=== PATIENT | male | born 1995 | race Two or more races ===

== ENCOUNTER 2017-06-29 12:16 | Emergency (ER) | payer BC, OTHER ==
[2017-06-29 12:20] VITALS: BMI 29.0
--- NOTE | 2017-06-29 12:26 | PDOC ---
History of Present Illness - General Chief Complaint: Seizure Stated Complaint: SEIZURE Time Seen by Provider: 06/29/17 12:24 History Source: Patient, Parent(s) (mother) Exam Limitations: Other (Mental disability) - History of Present Illness Initial Comments: 06/29/17 12:48 Patient is a 21 yo male with a history of intellectual disability and seizures presenting 2 hours after having a partially witnessed tonic clonic seizure. According to mother the patient was going to the bathroom around 10:30 AM when she heard him drop his glasses and then a "thump". She entered the bathroom to find the patient slumped over against the wall actively seizing. She assisted the patient to his side and the seizure lasted about 2-3 minutes. Afterward the patient was confused and lethargic for about 30 minutes before returning to baseline. The patient denies hitting his head, bitting his tongue or lips, HOOKS, weakness and head or neck pain. Mother also endorses a non-clonic seizure last night around 10:30 PM after which patient was post-ictal for a short period before going to sleep. According to mom, patient was c/o about having a fever last night states he did not feel hot and she did not take his temperature. Denies fever, chills, CP, SOB, Abdominal pain, N/V/D/C. Patient was diagnosed with a seizure disorder in 2006 but was not put on medication at that time. He was essentially seizure free until December when patient had a severe seizure and was started on Keppra 250 mg per day. Patient had another seizure in March and Keppra was increased to 250 mg bid. Patient is seen by Dr. Santizo. Mom called Dr. Santizo to tell her they were going to the emergency department and has a tentative appointment in 3 days. Past History - Past Medical History Allergies/Adverse Reactions: Allergies Allergy/AdvReac Type Severity Reaction Status Date / Time No Known Allergies Allergy Verified 06/29/17 12:21 Home Medications: Ambulatory Orders Levetiracetam [Keppra -] 250 mg PO BID 06/29/17 Psychiatric Problems: Yes (MENTALLY CHALLENGED) Seizures: Yes - Psycho/Social/Smoking Cessation Hx Suicidal Ideation: No Smoking History: Never smoked Information on smoking cessation initiated: No Review of Systems - Review of Systems Able to Perform ROS?: Yes Comments:: 06/29/17 13:16 Denies fever, chills, recent illnesses Denies HOOKS, head pain, neck pain, lightheadedness Denies chest pain, shortness of breath, palpitations Denies abdominal pain, nausea, vomiting, diarrhea, constipation Denies weakness, dizziness, Denies incontinence, dysurea All other systems reviewed and negative Is the patient limited Czech proficient: No *Physical Exam - Vital Signs Last Vital Signs Temp Pulse Resp BP Pulse Ox 97.5 F L 75 18 133/76 99 06/29/17 12:17 06/29/17 12:17 06/29/17 12:17 06/29/17 12:17 06/29/17 12:17 - Physical Exam Comments: 06/29/17 13:21 Patient is awake and alert, facial stigmata, well nourished and generally well appearing, NAD Head NCAT, small ([id number]) abrasion to right nare Eyes PERRLA, EOMI Hearing grossly normal, nares patent, no septal hematoma, MMM, no evidence of bites or oral lesions lungs CTAB, no respiratory distress Heart RRR, no MRG Abdomen soft NTND, [id number] Normal gross inspection of all extremities CNII-XII grossly intact, facial strength/sensation wnl, no focal neurological deficits Patient shy and minimally communicative, appropriate mood, very pleasant and social ED Treatment Course - LABORATORY CBC & Chemistry Diagram: 06/29/17 13:23 06/29/17 13:23 - RADIOLOGY Radiograph Interpretation: 06/29/17 13:39 [id number] RAD/CHEST X-RAY PORTABLE* Chest: Infection workup. An apical lordotic chest reveals clear lungs, prominent mediastinum and sharp angles. The bones and soft tissues are intact. Impression: No acute pathology. No comparison studies. Medical Decision Making - Medical Decision Making 06/29/17 13:30 21 yo male with ID and seizure disorder presenting after witnessed seizure Ddx includes seizure but also includes seizure mimics and underlying conditions that could lower the patients seizure threshold including infection and metabolic derrangement. Plan Standard labs: CBC, CMP CXR, UA Keppra level (for patient's neurology followup) Monitor and reassess Consult with patient's neurologist 06/29/17 13:35 CXR: No acute pathology; clear lungs 06/29/17 14:59 CBC, CMP, UA grossly normal CBC WBC 7.5 K/mm3 (4.0-10.0) 06/29/17 13:23 RBC 5.49 M/mm3 (4.00-5.60) 06/29/17 13:23 Hgb 16.0 GM/dL (11.7-16.9) 06/29/17 13:23 Hct 47.2 % (35.4-49) 06/29/17 13:23 MCV 85.9 fl (80-96) 06/29/17 13:23 MCH 29.1 pg (25.7-33.7) 06/29/17 13:23 MCHC 33.8 g/dl (32.0-35.9) 06/29/17 13:23 RDW 13.8 % (11.9-15.9) 06/29/17 13:23 Plt Count 230 K/MM3 (134-434) 06/29/17 13:23 MPV 8.8 fl (7.5-11.1) 06/29/17 13:23 Neutrophils % 77.3 % (42.8-82.8) 06/29/17 13:23 Lymphocytes % 14.7 % (8-40) 06/29/17 13:23 Monocytes % 6.6 % (3.8-10.2) 06/29/17 13:23 Eosinophils % 0.6 % (0-4.5) 06/29/17 13:23 Basophils % 0.8 % (0-2.0) 06/29/17 13:23 CMP Sodium 140 mmol/L (136-145) 06/29/17 13:23 Potassium 4.5 mmol/L (3.5-5.1) 06/29/17 13:23 Chloride 103 mmol/L (98-107) 06/29/17 13:23 Carbon Dioxide 28 mmol/L (21-32) 06/29/17 13:23 Anion Gap 9 (8-16) 06/29/17 13:23 BUN 18 mg/dL (7-18) 06/29/17 13:23 Creatinine 0.8 mg/dL (0.7-1.3) 06/29/17 13:23 Creat Clearance w eGFR > 60 (>60) 06/29/17 13:23 Random Glucose 103 mg/dL (74-106) 06/29/17 13:23 Calcium 8.8 mg/dL (8.5-10.1) 06/29/17 13:23 Total Bilirubin 0.8 mg/dL (0.2-1.0) 06/29/17 13:23 AST 45 U/L (15-37) H 06/29/17 13:23 ALT 40 U/L (12-78) 06/29/17 13:23 Alkaline Phosphatase 95 U/L (45-117) 06/29/17 13:23 Total Protein 7.2 g/dl (6.4-8.2) 06/29/17 13:23 Albumin 4.0 g/dl (3.4-5.0) 06/29/17 13:23 Urine Test Results Urine Color Yellow 06/29/17 12:45 Urine Appearance Clear 06/29/17 12:45 Urine pH 7.0 (5.0-8.0) 06/29/17 12:45 Urine Protein Negative (NEGATIVE) 06/29/17 12:45 Urine Glucose (UA) Negative (NEGATIVE) 06/29/17 12:45 Urine Ketones Negative (NEGATIVE) 06/29/17 12:45 Urine Blood Negative (NEGATIVE) 06/29/17 12:45 Urine Nitrite Negative (NEGATIVE) 06/29/17 12:45 Urine Bilirubin Negative (NEGATIVE) 06/29/17 12:45 Put in call to patient's neurologist, Dr. Hendrickson 06/29/17 15:42 Spoke with the patient's neurologist, Dr. Hendrickson She is okay with the patient going home and following up next week. Patient needs to call on Saturday or Saturday morning next week and make an appointment for Until then, patient should double the nighttime dose of keppra to [id number] They should continue with the single daytime dose of 250 mg She also requested a Keppra serum level which was already ordered. Instructions were given to patients mother. She expressed her understanding and agreement with the plan. Laboratory results were given. Return precautions were given and acknowledged. Patient discharged to home. *DC/Admit/Observation/Transfer Diagnosis at time of Disposition: Seizure - Discharge Dispostion Disposition: HOME Condition at time of disposition: Stable Admit: No - Referrals Referrals: Olivia Ibarra [Primary Care Provider] - Marj Santizo MD [Staff Physician] - - Patient Instructions Printed Discharge Instructions: DI for Seizure Disorder -- Adult Additional Instructions: You need to call Dr. Santizo's office on Saturday or Saturday morning to make an appointment. She will be able to see you on . Until then, you should take a double dose of Keppra in the evenings (2 pills of 250 mg) and continue with the normal daily dose (one pill of 250 mg). Please return to the emergency department if you have a severe worsening of your symptoms or develop any new or concerning symptoms including but not limited to seizures that last for more than 5 minutes, an increase in the number of seizures, or a failure to return to baseline between seizures. If you are concerned and cannot make it to the ED on your own, please call 911 immediately.
--- NOTE | 2017-06-29 13:09 | PDOC ---
Attending Attestation - Resident Resident Name: Prakash Lam - ED Attending Attestation I have performed the following: I have examined & evaluated the patient, The case was reviewed & discussed with the resident, I agree w/resident's findings & plan, Exceptions are as noted - HPI HPI: 06/29/17 13:03 21 M with developmental delay and seizure disorder on keppra presents to ER with seizure. Per mother, pt had a seizure last night. She heard him snoring very loudly in bed, which is not normal for him. When she encountered him, he was frothing at the mouth and post-ictal. He returned to baseline after about 30 minutes. This morning, pt was on the toilet when mother heard his glasses fall to the ground. She found him leaned against the wall and witnessed seizure- like activity. She laid him on his side, and he returned to baseline again after 30 minutes. Mother states that he did not fall or hit his head at any point. Pt denies any complaints now. Mother states that he is at baseline mentation. Denies any recent fevers, denies N/V/D. Pt denies headache, denies weakness/numbness. Is on Keppra 250mg BID, without missing any doses. Pt's last seizure was in March, and pt has been well controlled on current regimen since then. - Physicial Exam PE: 06/29/17 13:09 GENERAL: Awake, alert, and fully oriented, in no acute distress HEAD: No signs of trauma EYES: PERRLA, EOMI, sclera anicteric, conjunctiva clear ENT: Auricles normal inspection, hearing grossly normal, nares patent, oropharynx clear without exudates. Moist mucosa NECK: Nontender, no stepoffs, Normal ROM, supple, no lymphadenopathy, JVD, or masses LUNGS: Breath sounds equal, clear to auscultation bilaterally. No wheezes, and no crackles HEART: Regular rate and rhythm, normal S1 and S2, no murmurs, rubs or gallops ABDOMEN: Soft, nontender, normoactive bowel sounds. No guarding, no rebound. No masses EXTREMITIES: Normal range of motion, no edema. No clubbing or cyanosis. No cords, erythema, or tenderness NEUROLOGICAL: Cranial nerves II through XII intact. 5/5 strength and sensation in all extremities, Normal speech SKIN: Warm, Dry, normal turgor, no rashes or lesions noted. 06/29/17 13:10 - Medical Decision Making 06/29/17 13:11 21 M with seizure disorder on keppra presenting with breakthrough seizures. Possibly 2/2 subtherapeutic keppra level. Pt with no signs of infectious process. Will check for metabolic derangement. No signs of traumatic injury on exam. No neuro deficits. - Labs, CXR, UA, keppra level - Call neurologist. 06/30/17 07:08 Pt with unremarkable labs. Spoke with Pt's neurologist, Dr. Hendrickson, who suggested increasing PM keppra dose from 250 to 500mg. Pt to f/u with neuro clinic on . Upon reassessment, pt is at baseline mentation, awake and alert, with no complaints. stable for DC.
[2017-06-29 13:39] LABS: BASOPHIL 0.8 % (0-2.0); EOSINOPHIL 0.6 % (0-4.5); MCH 29.1 pg (25.7-33.7); MCHC 33.8 g/dl (32.0-35.9); MEAN CELL VOLUME 85.9 fl (80-96); MEAN PLT VOLUME 8.8 fl (7.5-11.1); NEUTROPHILS 77.3 % (42.8-82.8); PLATELET COUNT 230 K/MM3 (134-434); RDW 13.8 % (11.9-15.9); WHITE BLOOD COUNT 7.5 K/mm3 (4.0-10.0)
[2017-06-29 14:06] LABS: ANION GAP 9 (8-16); CALCIUM 8.8 mg/dL (8.5-10.1); CO2 28 mmol/L (21-32); CREATININE 0.8 mg/dL (0.7-1.3); GLUCOSE,RANDOM 103 mg/dL (74-106); SGPT/ALT 40 U/L (12-78)
[2017-06-29 14:08] LABS: ALK PHOS 95 U/L (45-117); BILIRUBIN,TOTAL 0.8 mg/dL (0.2-1.0); TOT PROT 7.2 g/dl (6.4-8.2)
[2017-06-29 14:13] LABS: SGOT/AST 45 U/L (15-37)
[2017-06-29 14:58] LABS: URINE APPEARANCE CLEAR; URINE BILIRUBIN NEGATIVE (NEGATIVE); URINE BLOOD NEGATIVE (NEGATIVE); URINE COLOR YELLOW; URINE GLUCOSE (UA) NEGATIVE (NEGATIVE); URINE KETONE NEGATIVE (NEGATIVE); URINE LEUK ESTERASE NEGATIVE (NEGATIVE); URINE NITRITE NEGATIVE (NEGATIVE); URINE PROTEIN NEGATIVE (NEGATIVE); URINE UROBILINOGEN NEGATIVE mg/dL (0.2-1.0)
[2017-06-29 16:13] VITALS: BP 108/63; PULSE 82; TEMP 97.8
== END 2017-06-29 16:13 | disposition home or self-care (01) ==
LOC: JER 12:16
DX: G40.909 Epilepsy, unspecified, not intractable, without status epilepticus (principal); F79 Unspecified intellectual disabilities
CPT/HCPCS: 36415; 71010-TC; 80053; 81003; 85025; 99283-25